=== PATIENT | female | born 1980 | race Caucasian/White ===

== ENCOUNTER 2019-03-31 02:13 | Emergency (ER) | payer MEDICAID ==
[~2019-03-31] VITALS: Ht 160 cm; Wt 73.9 kg
[~2019-03-31 02:13] MED LIST: NORE-89 PO
[2019-03-31 02:16] VITALS: Ht 160 cm; Wt 73.9 kg
[2019-03-31 04:07] VITALS: BP 113/70; PULSE 82; RESP 16
== END 2019-03-31 04:08 | disposition home or self-care (01) ==
LOC: FTE 02:13
DX: D25.9 Leiomyoma of uterus, unspecified (principal); R10.2 Pelvic and perineal pain
CPT/HCPCS: 36415; 76830; 76856; 80053; 81001; 81025; 83690; 85025; Z7502